=== PATIENT | male | born 2000 | race Caucasian/White ===

== ENCOUNTER 2024-08-16 08:25 | Emergency (ER) | payer SELFPAY ==
[~2024-08-16] VITALS: Ht 172.7 cm; Wt 70.0 kg
[2024-08-16 08:39] VITALS: BP 144/70; PULSE 110; RESP 16; TEMP 98; O2SAT 98
== END 2024-08-16 08:43 | disposition home or self-care (01) ==
LOC: ER 08:42
DX: F10.10 Alcohol abuse, uncomplicated (principal); Y90.9 Presence of alcohol in blood, level not specified
CPT/HCPCS: 99283